=== PATIENT | female | born 1965 | race Caucasian/White ===

== ENCOUNTER 2017-02-22 07:51 | Emergency (ER) | payer BC, MEDICAID ==
--- NOTE | 2017-02-22 08:06 | EDM.PDOC ---
ED HPI GENERAL MEDICAL PROBLEM - General Chief Complaint: Lower Extremity Injury/Pain Stated Complaint: TOE INJURY AND HAND INJURY Time Seen by Provider: 02/22/17 08:04 - History of Present Illness INITIAL COMMENTS - FREE TEXT/NARRATIVE: 52-year-old female presents emergency room with left foot pain and right hand pain. Patient does not recall injuring her right hand however about a week ago she kicked a chair accidentally while walking with her left foot she has significant swelling around the distal fifth metatarsal and into the toe she had a fracture in this foot some time back and is worried that maybe she reinjured it. Patient denies any numbness or tingling in her foot just discomfort with ambulation. She has not tried any medication for this. 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 She denies any specific trauma this is been bothering her for a couple of weeks now. She has not tried any medications for reviewed these conditions.. She does not awaken with her hand being numb does not have difficulty holding on to objects or dropping objects. Right Hand Pain Score (Numeric/FACES): 7 Left Feet Pain Score (Numeric/FACES): 8 - Related Data Allergies Allergy/AdvReac Type Severity Reaction Status Date / Time codeine Allergy Rash Verified 02/22/17 07:58 Penicillins Allergy Swelling Verified 02/22/17 07:58 Home Meds: Home Meds Levothyroxine [Synthroid] 300 mcg PO DAILY 01/06/16 [History] Naproxen [Naprosyn] 500 mg PO Q12HR #20 tablet 02/22/17 [Rx] Past Medical History Respiratory History: Reports: COPD Endocrine/Metabolic History: Reports: Hypothyroidism - Past Surgical History Female Surgical History: Reports: Hysterectomy, Tubal Ligation 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 Surgical History: Reports: Other (See Below) Social & Family History - Tobacco Use Smoking Status *Q: Current Every Day Smoker Years of Tobacco use: 20 Packs/Tins Daily: 0.5 - Caffeine Use Caffeine Use: Reports: None - Recreational Drug Use Recreational Drug Use: No Review of Systems - Review of Systems Review Of Systems: See Below Constitutional: Reports: No Symptoms Respiratory: Reports: No Symptoms Cardiovascular: Reports: No Symptoms GI/Abdominal: Reports: No Symptoms ED EXAM, GENERAL - Physical Exam Exam: See Below Exam Limited By: No Limitations General Appearance: Alert, No Apparent Distress Respiratory/Chest: No Respiratory Distress, Lungs Clear, Normal Breath Sounds Cardiovascular: Regular Rate, Rhythm, No Edema, No Murmur Extremities: Other (Examination of her right hand shows no swelling or deformity she has some discomfort with flexion and extension of her thumb the pain goes into her long extensor tendon. Tinel's is negative Phalen's and reverse Phalen's negative neurovascular status normal. Examination of her left foot shows some swelling along the distal fifth metatarsal no warmth or redness associated with this she has what looks like a hammertoe with a large callus formation over the dorsal lateral interphalangeal joint. Neurovascular status of the foot is normal she has some generalized tenderness in this area aggravated by motion.) Course - Vital Signs Last Recorded V/S: Last Vital Signs Temp 36.3 C 02/22/17 07:55 Pulse 80 02/22/17 07:55 Resp 18 02/22/17 07:55 BP 114/68 02/22/17 07:55 Pulse Ox 100 02/22/17 07:55 - Orders/Labs/Meds Orders: Active Orders 24 hr Category Date Time Status Foot Comp Min 3V Lt [CR] Stat Exams 02/22/17 08:13 Taken - Re-Assessments/Exams Free Text/Narrative Re-Assessment/Exam: 02/22/17 09:06 X-ray of her left foot does not reveal any acute fracture dislocation she's got significant degenerative changes noted in her toes. I'm a little suspicious of fracture but cannot visualize it at this point. She will be placed in a postop shoe with follow-up in the clinic she'll be started on Naprosyn 500 mg twice a day with meals. She will follow-up with her regular provider early this next week. Departure - Departure Time of Disposition: 09:07 Disposition: Home, Self-Care 01 Clinical Impression: Injury of left foot, Right hand tendonitis - Discharge Information Referrals: Charlene Edmonds NP [Primary Care Provider] - Forms: ED Department Discharge Additional Instructions: Return to the emergency room with any questions problems worsening symptoms. Follow-up the clinic early this next week for recheck. He was started on Naprosyn take one of these twice daily with meals discontinue if it causes stomach upset. Tylenol can be used in addition to this. Do not take ibuprofen with the Naprosyn. This will be helpful for your foot pain as well as your hand tendinitis. You have been given a postop shoe this is to facilitate comfort and improve healing in your foot. - My Orders Last 24 Hours: My Active Orders 02/22/17 08:13 Foot Comp Min 3V Lt [CR] Stat - Assessment/Plan Last 24 Hours: My Active Orders 02/22/17 08:13 Foot Comp Min 3V Lt [CR] Stat
[2017-02-22 08:07] VITALS: BP 114/68
--- NOTE | 2017-02-23 17:11 | CR ---
Left foot: Four views of the left foot were obtained. Comparison: Previous left foot exam of 01/06/16. Joint spaces are preserved. No calcaneal spurs are seen. No fracture or other bony abnormality is identified. Impression: 1. No bony abnormality is identified on left foot study. Diagnostic code #1
== END 2017-02-22 09:22 | disposition home or self-care (01) ==
LOC: JD.ED 07:51 → SUPCPDRO 07:51 → JD.ED 09:22
DX: S99.922A Unspecified injury of left foot, initial encounter (principal); M77.9 Enthesopathy, unspecified; Z88.5 Allergy status to narcotic agent; Z88.0 Allergy status to penicillin; J44.9 Chronic obstructive pulmonary disease, unspecified; E03.9 Hypothyroidism, unspecified; Z79.899 Other long term (current) drug therapy; F17.210 Nicotine dependence, cigarettes, uncomplicated; W22.8XXA Striking against or struck by other objects, initial encounter
CPT/HCPCS: 73630-26-LT; 73630-LT; 99283

== ENCOUNTER 2017-05-16 18:26 | Emergency (ER) | payer BC ==
[2017-05-16 18:38] VITALS: BP 113/75
[2017-05-16] MEDS ORDERED: Sodium Chloride 0.9% 10 ML Syringe FLUSH PRN (19:15)
[2017-05-16] MEDS ORDERED: Aspirin 81 MG Tab.Chew PO ONE (19:15)
--- NOTE | 2017-05-16 20:30 | EDM.PDOC ---
ED HPI GENERAL MEDICAL PROBLEM - General Chief Complaint: Chest Pain Stated Complaint: CHEST PAIN,SOB Time Seen by Provider: 05/16/17 18:40 Source of Information: Reports: Patient History Limitations: Reports: No Limitations - History of Present Illness INITIAL COMMENTS - FREE TEXT/NARRATIVE: 52-year-old female presents for evaluation and treatment of chest pain and shortness of breath. Patient reports that two night ago she did not feel well. She reported nausea and diarrhea. She questioned if she had the flu. She reports discomfort last night and questioned if she slept wrong. Reports morning she woke up with severe pain to the right side of her chest. Reports that any movement, laughing, sneezing, etc. makes the pain much worse. Patient reports numbness and tingling into the arm but attributes this to her Raynods. She denies any fevers, diaphoresis, recent nausea, lightheadedness, dizziness, syncope or vomiting. She's never had anything like this before. She took some [place] last night for flu symptoms but nothing since. No aspirin prior to arrival. Patient reports that she uses tobacco products. 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 She states that she does a fair amount of lifting. 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 History: Reports: Fracture Endocrine/Metabolic History: Reports: Hypothyroidism - Infectious Disease History Infectious Disease History: Reports: Chicken Pox, Measles, Mumps - Past Surgical History HEENT Surgical History: Reports: Tonsillectomy GI Surgical History: Reports: Appendectomy Female Surgical History: Reports: Hysterectomy, Tubal Ligation Social & Family History - Tobacco Use Smoking Status *Q: Current Every Day Smoker Years of Tobacco use: 25 Packs/Tins Daily: 0.4 Second Hand Smoke Exposure: Yes - Caffeine Use Caffeine Use: Reports: Coffee - Recreational Drug Use Recreational Drug Use: No ED ROS GENERAL - Review of Systems Review Of Systems: See Below Constitutional: Reports: Malaise. Denies: Fever Respiratory: Denies: Shortness of Breath, Cough Cardiovascular: Reports: Chest Pain (right). Denies: Lightheadedness, Syncope GI/Abdominal: Denies: Nausea, Vomiting 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: Reports: Neck Pain (chronic), Back Pain (chronic) Neurological: Reports: Numbness (chronic, right arm), Tingling (chronic, right arm). Denies: Syncope ED EXAM, GENERAL - Physical Exam Exam: See Below Exam Limited By: No Limitations General Appearance: Alert, WD/WN, No Apparent Distress Eye Exam: Bilateral Eye: Normal Inspection Ears: Normal External Exam Nose: Normal Inspection Throat/Mouth: Normal Inspection, Normal Lips, Normal Voice, No Airway Compromise Respiratory/Chest: No Respiratory Distress, Lungs Clear, Normal Breath Sounds Cardiovascular: Normal Peripheral Pulses, Regular Rate, Rhythm, No Murmur, Other (tenderness to palpation to the right intercostal muscle in between ribs 2 and 3) Neurological: Alert, Oriented, Normal Cognition Psychiatric: Normal Affect, Normal Mood Skin Exam: Warm, Dry, Normal Color EKG INTERPRETATION EKG Date: 05/16/17 Time: 14:30 Rhythm: NSR Rate (Beats/Min): 80 Post: Normal P-Wave: Present QRS: Normal ST-T: Normal QT: Normal EKG Interpretation Comments: NSR at 80 bpm. No acute changes. Reviewed by myself and Dr. Mckeon. Course - Vital Signs Last Recorded V/S: Last Vital Signs Temp 36.6 C 05/16/17 18:37 Pulse 77 05/16/17 18:37 Resp 20 05/16/17 18:37 BP 113/75 05/16/17 18:37 Pulse Ox 100 05/16/17 18:37 - Orders/Labs/Meds Orders: Active Orders 24 hr Category Date Time Status Cardiac Monitoring [RC] . DIRECTED Care 05/16/17 19:15 Active EKG 12 Lead [EKG Documentation Completion] [RC] STAT Care 05/16/17 19:10 Active Peripheral IV Care [RC] . DIRECTED Care 05/16/17 19:15 Active Chest 2V [CR] Stat Exams 05/16/17 19:10 Taken Peripheral IV Insertion Adult [OM.PC] Routine Oth 05/16/17 19:14 Ordered Labs: Laboratory Tests 05/16/17 05/16/17 05/16/17 Range/Units 19:40 19:40 19:40 WBC 6.69 (3.98-10.04) K/mm3 RBC 3.97 L (3.98-5.22) M/mm3 Hgb 11.8 (11.2-15.7) gm/L Hct 36.0 (34.1-44.9) % MCV 90.7 (79.4-94.8) fl MCH 29.7 (25.6-32.2) pg MCHC 32.8 (32.2-35.5) g/dl RDW Std Deviation 52.0 H (36.4-46.3) fL Plt Count 315 (182-369) K/mm3 MPV 8.9 L (9.4-12.3) fl Neut % (Auto) 61.8 (34.0-71.1) % Lymph % (Auto) 23.9 (19.3-51.7) % [place] % (Auto) 11.2 (4.7-12.5) % Eos % (Auto) 2.4 (0.7-5.8) Baso % (Auto) 0.6 (0.1-1.2) % Neut # (Auto) 4.13 (1.56-6.13) K/mm3 Lymph # (Auto) 1.60 (1.18-3.74) K/mm3 [place] # (Auto) 0.75 H (0.24-0.36) K/mm3 Eos # (Auto) 0.16 (0.04-0.36) K/mm3 Baso # (Auto) 0.04 (0.01-0.08) K/mm3 D-Dimer, Quantitative 0.31 (0.19-0.59) mg/L Sodium 141 (136-145) mEq/L Potassium 3.6 (3.5-5.1) mEq/L Chloride 105 (98-107) mEq/L Carbon Dioxide 26 (21-32) mEq/L Anion Gap 13.6 (5-15) BUN 12 (7-18) mg/dL Creatinine 0.8 (0.55-1.02) mg/dL Est Cr Clr Drug Dosing 68.51 mL/min Estimated GFR (MDRD) > 60 (>60) mL/min BUN/Creatinine Ratio 15.0 (14-18) Glucose 119 H (74-106) mg/dL Calcium 8.7 (8.5-10.1) mg/dL Total Bilirubin 0.1 L (0.2-1.0) mg/dL AST 28 (15-37) U/L ALT 32 (14-59) U/L Alkaline Phosphatase 67 (46-116) U/L CK-MB (CK-2) 3.2 (0-3.6) ng/ml Troponin I < 0.017 (0.00-0.056) ng/mL Total Protein 7.2 (6.4-8.2) g/dl Albumin 3.6 (3.4-5.0) g/dl Globulin 3.6 gm/dL Albumin/Globulin Ratio 1.0 (1-2) Lipase 173 (73-393) U/L Meds: Medications Discontinued Medications Generic Name Dose Route Start Last Admin Trade Name Freq PRN Reason Stop Dose Admin Aspirin 324 mg 05/16/17 19:15 05/16/17 19:26 Aspirin PO 05/16/17 19:16 324 mg ONETIME ONE Administration Ibuprofen 600 mg 05/16/17 20:34 05/16/17 20:42 Motrin PO 05/16/17 20:35 600 mg ONETIME ONE Administration Sodium Chloride 10 ml 05/16/17 19:15 05/16/17 19:27 Saline Flush FLUSH 10 ml ASDIRECTED PRN Administration Keep Vein Open - Radiology Interpretation Free Text/Narrative:: chest xray shows no acute intrathoracic process. - Re-Assessments/Exams Free Text/Narrative Re-Assessment/Exam: 05/16/17 20:39 I reviewed the chest x-ray, EKG and lab results with the patient. She is anxious to go home at this time. This appears to be musculoskeletal in origin. She also has some cervical radiculopathy. Recommend follow-up with her primary care provider next week. Discharge instructions as documented. Departure - Departure Time of Disposition: 20:39 Disposition: Home, Self-Care 01 Condition: Fair Clinical Impression: Chest wall pain Prescriptions: Orphenadrine [Norflex] 100 mg PO QID PRN #14 tab.er PRN Reason: Muscle Spasm Instructions: Chest Wall Pain, [id number] Referrals: Charlene Edmonds NP [Primary Care Provider] - Forms: ED Department Discharge Additional Instructions: [id number] Tylenol or Motrin as needed for pain relief. may also use ice or heat to the sore area. May also try topical products such as icy hot or BenGay. Norflex 1 tab twice a day as needed for muscle spasms and pain relief. Follow-up with your primary care provider next week. Please return to ER if your symptoms change or worsen. - My Orders Last 24 Hours: My Active Orders 05/16/17 19:10 EKG 12 Lead [EKG Documentation Completion] [RC] STAT Chest 2V [CR] Stat 05/16/17 19:14 Peripheral IV Insertion Adult [OM.PC] Routine 05/16/17 19:15 Cardiac Monitoring [RC] . DIRECTED Peripheral IV Care [RC] . DIRECTED - Assessment/Plan Last 24 Hours: My Active Orders 05/16/17 19:10 EKG 12 Lead [EKG Documentation Completion] [RC] STAT Chest 2V [CR] Stat 05/16/17 19:14 Peripheral IV Insertion Adult [OM.PC] Routine 05/16/17 19:15 Cardiac Monitoring [RC] . DIRECTED Peripheral IV Care [RC] . DIRECTED
[2017-05-16] MEDS ORDERED: Ibuprofen 600 MG Tab PO ONE (20:34)
--- NOTE | 2017-05-17 13:41 | CR ---
Chest: Two views of the chest were obtained. Comparison: No prior chest x-ray. Heart size and mediastinum are normal. Lungs are clear. Old left-sided rib fractures are seen within the left seventh rib. Mild degenerative change is seen within the lumbar spine. Minimal degenerative change within the thoracic spine is seen. Impression: 1. Incidental findings. Nothing acute is appreciated on two-view chest x-ray. Diagnostic code #2
== END 2017-05-16 20:48 | disposition home or self-care (01) ==
LOC: JD.ED 18:26
DX: R07.89 Other chest pain (principal); E03.9 Hypothyroidism, unspecified; F17.210 Nicotine dependence, cigarettes, uncomplicated; Z88.0 Allergy status to penicillin; Z88.5 Allergy status to narcotic agent; Z79.899 Other long term (current) drug therapy
CPT/HCPCS: 36415; 71046; 80053; 82553; 83690; 84484; 85025; 85379; 93005; 99285; A9270; J7050; 93010; 99284

== ENCOUNTER 2017-08-09 07:27 | Emergency (ER) | payer BC ==
[2017-08-09 07:45] VITALS: BP 135/61
[2017-08-09] MEDS ORDERED: oxyCODONE 5 MG Tab PO PRN (08:23)
[2017-08-09] MEDS ORDERED: Ibuprofen 800 MG Tab PO ONE (08:23)
--- NOTE | 2017-08-09 08:24 | EDM.PDOC ---
ED HPI GENERAL MEDICAL PROBLEM - General Chief Complaint: Respiratory Problem Stated Complaint: CHEST INJURY Time Seen by Provider: 08/09/17 07:41 Source of Information: Reports: Patient History Limitations: Reports: No Limitations - History of Present Illness INITIAL COMMENTS - FREE TEXT/NARRATIVE: 52 y/o F with R chest wall pain after a fall. Fell 3 days ago. States she was having pain from a Crohn's flare. Was standing when she felt dizzy/lightheaded/ nauseated/had tunnel vision then fell. Thinks she passed out for less than a minute. When she awoke her was trying to wake her up. States she thinks she hit a coffee table on her way down. Has had R sided chest pain since then. pain worse with breathing. Hasn't taken anything for pain at home. Pain is moderate to severe. Worse with breathing and movement. Chronic cough due to COPD. No SOB. No fever. She states that her Crohn's flare is much improved and she no longer has abdominal pain or other bowel symptoms. Doesn't feel lightheaded, has been able to eat and drink normally the last day or 2. No lower extremity pain or swelling. Chest Pain Score (Numeric/FACES): 8 - Related Data Allergies Allergy/AdvReac Type Severity Reaction Status Date / Time codeine Allergy Rash Verified 08/09/17 07:45 Penicillins Allergy Swelling Verified 08/09/17 07:45 Home Meds: Home Meds Levothyroxine [Synthroid] 300 mcg PO DAILY 01/06/16 [History] Ibuprofen 600 mg PO QID PRN #40 tablet 08/09/17 [Rx] oxyCODONE 5 mg PO QID PRN #16 tab 08/09/17 [Rx] Past Medical History Cardiovascular History: Reports: Other (See Below) Other Cardiovascular History: reynauds Respiratory History: Reports: COPD Gastrointestinal History: Reports: Celiac Disease, Other (See Below) 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: Reports: Fracture Endocrine/Metabolic History: Reports: Hypothyroidism - Infectious Disease History Infectious Disease History: Reports: Chicken Pox, Measles, Mumps - Past Surgical History HEENT Surgical History: Reports: Tonsillectomy GI Surgical History: Reports: Appendectomy Female Surgical History: Reports: Hysterectomy, Tubal Ligation Endocrine Surgical History: Reports: Thyroidectomy Social & Family History - Tobacco Use Smoking Status *Q: Current Some Day Smoker Years of Tobacco use: 30 Packs/Tins Daily: 0.2 Second Hand Smoke Exposure: Yes - Caffeine Use Caffeine Use: Reports: Coffee - Recreational Drug Use Recreational Drug Use: No ED ROS GENERAL - Review of Systems Review Of Systems: See Below Constitutional: Denies: Fever HEENT: Reports: No Symptoms Respiratory: Reports: Cough. Denies: Shortness of Breath Cardiovascular: Reports: Chest Pain Endocrine: Reports: No Symptoms GI/Abdominal: Denies: Abdominal Pain 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: Reports: No Symptoms Skin: Reports: Bruising Neurological: Reports: No Symptoms Psychiatric: Reports: No Symptoms ED EXAM, GENERAL - Physical Exam Exam: See Below Exam Limited By: No Limitations General Appearance: Alert, WD/WN, No Apparent Distress Eye Exam: Bilateral Eye: Normal Inspection Ears: Normal External Exam Nose: Normal Inspection Throat/Mouth: Normal Inspection, Normal Oropharynx, Normal Voice, No Airway Compromise Head: Atraumatic, Normocephalic Neck: Normal Inspection, Supple, Non-Tender, Full Range of Motion Respiratory/Chest: No Respiratory Distress, Lungs Clear, Normal Breath Sounds, No Accessory Muscle Use, Other (Right chest wall contusion and tenderness from approximately T2-T4 area, no swelling, no crepitus or deformity) Cardiovascular: Normal Peripheral Pulses, Regular Rate, Rhythm, No Edema, No Murmur GI/Abdominal: Soft, Non-Tender, No Distention. No: Rebound Back Exam: Normal Inspection. No: CVA Tenderness (L), CVA Tenderness (R), Paraspinal Tenderness, Vertebral Tenderness Extremities: Normal Inspection Neurological: Alert, Oriented, Normal Cognition, No Motor/Sensory Deficits Psychiatric: Normal Affect, Normal Mood Skin Exam: Warm, Dry, Intact, Normal Color, No Rash Course - Vital Signs Last Recorded V/S: Last Vital Signs Temp 36.9 C 08/09/17 07:41 Pulse 80 08/09/17 07:41 Resp 16 08/09/17 07:41 BP 135/61 08/09/17 07:41 Pulse Ox 100 08/09/17 07:41 - Orders/Labs/Meds Orders: Active Orders 24 hr Category Date Time Status EKG 12 Lead [EKG Documentation Completion] [RC] STAT Care 08/09/17 08:23 Active Chest 2V [CR] Stat Exams 08/09/17 08:23 Taken oxyCODONE Med 04/07/18 08:23 Active 5 mg PO ONETIME PRN Medication Orders Oxycodone HCl (Oxycodone) 5 mg PO ONETIME PRN PRN Reason: Pain Last Admin: 08/09/17 08:31 Dose: 5 mg Labs: Laboratory Tests 08/09/17 08/09/17 Range/Units 08:36 08:36 WBC 7.09 (3.98-10.04) K/mm3 RBC 3.85 L (3.98-5.22) M/mm3 Hgb 11.6 (11.2-15.7) gm/L Hct 35.7 (34.1-44.9) % MCV 92.7 (79.4-94.8) fl MCH 30.1 (25.6-32.2) pg MCHC 32.5 (32.2-35.5) g/dl RDW Std Deviation 50.3 H (36.4-46.3) fL Plt Count 304 (182-369) K/mm3 MPV 8.9 L (9.4-12.3) fl Neut % (Auto) 72.3 H (34.0-71.1) % Lymph % (Auto) 14.1 L (19.3-51.7) % [place] % (Auto) 11.3 (4.7-12.5) % Eos % (Auto) 1.6 (0.7-5.8) Baso % (Auto) 0.6 (0.1-1.2) % Neut # (Auto) 5.13 (1.56-6.13) K/mm3 Lymph # (Auto) 1.00 L (1.18-3.74) K/mm3 [place] # (Auto) 0.80 H (0.24-0.36) K/mm3 Eos # (Auto) 0.11 (0.04-0.36) K/mm3 Baso # (Auto) 0.04 (0.01-0.08) K/mm3 Sodium 141 (136-145) mEq/L Potassium 3.2 L (3.5-5.1) mEq/L Chloride 104 (98-107) mEq/L Carbon Dioxide 28 (21-32) mEq/L Anion Gap 12.2 (5-15) BUN 8 (7-18) mg/dL Creatinine 0.6 (0.55-1.02) mg/dL Est Cr Clr Drug Dosing 79.68 mL/min Estimated GFR (MDRD) > 60 (>60) mL/min BUN/Creatinine Ratio 13.3 L (14-18) Glucose 92 (74-106) mg/dL Calcium 8.4 L (8.5-10.1) mg/dL Total Bilirubin 0.3 (0.2-1.0) mg/dL AST 28 (15-37) U/L ALT 24 (14-59) U/L Alkaline Phosphatase 74 (46-116) U/L Troponin I < 0.017 (0.00-0.056) ng/mL Total Protein 6.8 (6.4-8.2) g/dl Albumin 3.4 (3.4-5.0) g/dl Globulin 3.4 gm/dL Albumin/Globulin Ratio 1.0 (1-2) Meds: Medications Generic Name Dose Route Start Last Admin Trade Name Freq PRN Reason Stop Dose Admin Oxycodone HCl 5 mg 08/09/17 08:23 08/09/17 08:31 Oxycodone PO 5 mg ONETIME PRN Administration Pain Discontinued Medications Generic Name Dose Route Start Last Admin Trade Name Freq PRN Reason Stop Dose Admin Ibuprofen 800 mg 08/09/17 08:23 08/09/17 08:31 Motrin PO 08/09/17 08:24 800 mg ONETIME ONE Administration - Re-Assessments/Exams Free Text/Narrative Re-Assessment/Exam: 08/09/17 09:26 Chest x-ray shows hyperinflation, no pneumothorax. I do not appreciate any rib fractures though nondisplaced fractures could be missed. EKG shows normal sinus rhythm diffuse subtle ST depression less than 0.5mm, no ST elevation or other abnormality. Troponin is negative. Labs otherwise normal. She would like to go home. Discussed pain control, need for follow-up, and return precautions. Departure - Departure Time of Disposition: 10:00 Disposition: Home, Self-Care 01 Clinical Impression: Chest wall contusion Qualifiers: Encounter type: initial encounter Laterality: right Qualified Code(s): S20.211A - Contusion of right front wall of thorax, initial encounter - Discharge Information Prescriptions: Ibuprofen 600 mg PO QID PRN #40 tablet PRN Reason: Pain oxyCODONE 5 mg PO QID PRN #16 tab PRN Reason: Pain Instructions: Chest Wall Pain, [id number], Contusion, [id number] Referrals: Charlene Edmonds NP [Primary Care Provider] - Forms: ED Department Discharge, ED Return to Work/School Form Additional Instructions: 1. Take ibuprofen for pain. OK to take acetaminophen for pain as well. 2. Take oxycodone for severe pain. 3. Follow up with your primary doctor as needed. 4. Return to the ED if you have difficulty breathing, worsening cough/fever, or other concerning symptoms - My Orders Last 24 Hours: My Active Orders 08/09/17 08:23 EKG 12 Lead [EKG Documentation Completion] [RC] STAT Chest 2V [CR] Stat oxyCODONE 5 mg PO ONETIME PRN - Assessment/Plan Last 24 Hours: My Active Orders 08/09/17 08:23 EKG 12 Lead [EKG Documentation Completion] [RC] STAT Chest 2V [CR] Stat oxyCODONE 5 mg PO ONETIME PRN
--- NOTE | 2017-08-09 16:12 | CR ---
Chest: Two views of the chest were obtained. Comparison: Prior chest x-ray of 05/16/17. Heart size and mediastinum are normal. Lungs show no acute parenchymal densities. Bony structures are within normal limits for the patient's age. Incidental note of old healed left mid rib fracture. Impression: 1. Nothing acute is appreciated on two-view chest x-ray. Diagnostic code #2
== END 2017-08-09 09:26 | disposition home or self-care (01) ==
LOC: JD.ED 07:27
DX: S20.211A Contusion of right front wall of thorax, initial encounter (principal); J44.9 Chronic obstructive pulmonary disease, unspecified; E03.9 Hypothyroidism, unspecified; F17.210 Nicotine dependence, cigarettes, uncomplicated; Z88.5 Allergy status to narcotic agent; Z88.0 Allergy status to penicillin; Z79.899 Other long term (current) drug therapy; W19.XXXA Unspecified fall, initial encounter
CPT/HCPCS: 36415; 71046; 80053; 84484; 85025; 93005; 99285; A9270; 93010; 99283-25

== ENCOUNTER 2017-11-04 06:09 | Emergency (ER) | payer BC ==
[2017-11-04 06:16] VITALS: BP 131/70
[2017-11-04] MEDS ORDERED: Ibuprofen 600 MG Tab PO ONE (06:32)
[2017-11-04] MEDS ORDERED: Orphenadrine 100 MG Tab.ER PO STA (06:32)
--- NOTE | 2017-11-04 06:38 | EDM.PDOC ---
ED HPI GENERAL MEDICAL PROBLEM - General Chief Complaint: Back Pain or Injury Stated Complaint: SOB Time Seen by Provider: 11/04/17 06:18 Source of Information: Reports: Patient History Limitations: Reports: No Limitations - History of Present Illness INITIAL COMMENTS - FREE TEXT/NARRATIVE: The patient states that she has had lower left back pain for nearly 30 years, a sensibly due to scoliosis, although she states that she has never had a medical evaluation for it, only chiropractic. She states that she saw her chiropractor yesterday, but that the adjustment only made her symptoms worse. The pain does not radiate down either lower extremity, and she denies tingling or numbness. She states that no position is better than another. No urinary symptoms. She states that she took 2 Percocet this morning, left over from a prior hand injury. The patient's PCP is Charlene Edmonds. 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: 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 History: Reports: Fracture, Other (See Below) (Raynaud phenomenon) Endocrine/Metabolic History: Reports: Hypothyroidism - Infectious Disease History Infectious Disease History: Reports: Chicken Pox, Measles, Mumps - Past Surgical History HEENT Surgical History: Reports: Tonsillectomy GI Surgical History: Reports: Appendectomy Female Surgical History: Reports: Hysterectomy, Tubal Ligation Endocrine Surgical History: Reports: Thyroidectomy Social & Family History - Family History Family Medical History: Noncontributory - Tobacco Use Smoking Status *Q: Current Every Day Smoker Years of Tobacco use: 10 Packs/Tins Daily: 0.1 - Caffeine Use Caffeine Use: Reports: None - Recreational Drug Use Recreational Drug Use: Yes ED ROS GENERAL - Review of Systems Review Of Systems: ROS reveals no pertinent complaints other than HPI. ED EXAM,LOWER BACK PAIN/INJURY - Physical Exam Exam: See Below Exam Limited By: No Limitations General Appearance: Alert, WD/WN, Mild Distress (tearful), Thin Back Exam: Other (No visible abnormality to the patient's lower back, such as swelling, erythema, ecchymosis, or abrasion. There is reproducible tenderness to palpation over the left SI joint. No tenderness to palpation of the vertebral spine or right SI joint.) Course - Vital Signs Last Recorded V/S: Last Vital Signs Temp 37.1 C 11/04/17 06:12 Pulse 97 11/04/17 06:12 Resp 24 H 11/04/17 06:12 BP 131/70 11/04/17 06:12 Pulse Ox 100 11/04/17 06:12 - Orders/Labs/Meds Orders: Active Orders 24 hr Category Date Time Status Ibuprofen [Motrin] Med 11/04/17 06:32 Once 600 mg PO ONETIME ONE Orphenadrine [Norflex] Med 11/04/17 06:32 Stat 100 mg PO ONETIME STA - Re-Assessments/Exams Free Text/Narrative Re-Assessment/Exam: 11/04/17 06:32 The patient is complaining of [id number] lower back pain, made worse after she saw her chiropractor yesterday. Her pain is over her left SI joint, and appears to be musculoskeletal in etiology. I will start her on Norflex and ibuprofen here in the ED, then prescribe another 7 days of Norflex. If the Norflex works for her, she can get refills from her PCP, Charlene Edmonds. If it does not work, I would like her to follow-up with Dr. Bush. Departure - Departure Time of Disposition: 06:33 Disposition: Home, Self-Care 01 Condition: Good Clinical Impression: Acute exacerbation of chronic low back pain - Discharge Information Referrals: Charlene Edmonds NP [Ordering Only Provider] - Maxime Bush MD [Physician] - Additional Instructions: You were seen in the emergency room for exacerbation of your chronic lower left back pain. Your history and physical examination indicate that the pain is due to a muscle strain or spasm. You have been started on the muscle relaxant Norflex. A prescription for Norflex has been sent to the [facility], located in the [place] store. Take one tablet every 12 hours, as prescribed. Take [id number] ibuprofen, 2-3 tablets (400-600 mg) every 8 hours, with food, as needed for pain. If the Norflex works for you, you can get a refill from your PCP, Charlene Edmonds. If the Norflex does not work for you, please follow-up with the orthopedic surgeon Dr. Bush. He will be in his office this coming 11/07/2017, however , you need to call before then to make an appointment. Be aware that his office will be closed tomorrow, Friday, November 05. If any other problems, please do not hesitate to return to the ER. - My Orders Last 24 Hours: My Active Orders 11/04/17 06:32 Ibuprofen [Motrin] 600 mg PO ONETIME ONE Orphenadrine [Norflex] 100 mg PO ONETIME STA - Assessment/Plan Last 24 Hours: My Active Orders 11/04/17 06:32 Ibuprofen [Motrin] 600 mg PO ONETIME ONE Orphenadrine [Norflex] 100 mg PO ONETIME STA
== END 2017-11-04 06:42 | disposition home or self-care (01) ==
LOC: JD.ED 06:09
DX: M54.5 Low back pain (principal); G89.29 Other chronic pain; J44.9 Chronic obstructive pulmonary disease, unspecified; F17.210 Nicotine dependence, cigarettes, uncomplicated; E03.9 Hypothyroidism, unspecified; Z88.5 Allergy status to narcotic agent; Z88.0 Allergy status to penicillin; Z79.899 Other long term (current) drug therapy
CPT/HCPCS: 99283; A9270

== ENCOUNTER 2018-10-26 09:12 | Emergency (ER) | payer BC ==
[2018-10-26 09:23] VITALS: BP 137/75
[2018-10-26] MEDS ORDERED: Acetaminophen/HYDROcodone 325-5 MG Tab PO ONE (09:36)
--- NOTE | 2018-10-26 11:58 | EDM.PDOC ---
ED HPI GENERAL MEDICAL PROBLEM - General Chief Complaint: Chest Pain Stated Complaint: RIB PAIN/INJURY Time Seen by Provider: 10/26/18 09:26 Source of Information: Reports: Patient, RN Notes Reviewed - History of Present Illness INITIAL COMMENTS - FREE TEXT/NARRATIVE: 53-year-old female was riding a mechanical bull about 4 days ago, as she was getting bucked off she states her left chest he had a horn of the bull. She did not get hurt in any other way but has had continued pain left chest. Then today at work doing some fairly heavy lifting she had onset of right-sided chest pain and difficulty breathing. That is what brings her here at this time. The pain does not radiate to her back or either shoulder or arm. She's not been coughing any more than usual. She does smoke. Bilateral Lower Chest Pain Score (Numeric/FACES): 8 - Related Data Allergies Allergy/AdvReac Type Severity Reaction Status Date / Time codeine Allergy Rash Verified 10/26/18 09:23 Penicillins Allergy Swelling Verified 10/26/18 09:23 Home Meds: Home Meds Levothyroxine [Synthroid] 300 mcg PO DAILY 01/06/16 [History] Estradiol 0.5 mg PO DAILY 10/26/18 [History] Past Medical History Cardiovascular History: Reports: Other (See Below) Other Cardiovascular History: reynauds Respiratory History: Reports: COPD Other Respiratory History: emphasema Gastrointestinal History: Reports: Celiac Disease, Inflammatory Bowel Disease 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: 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 History: Reports: Fracture, Other (See Below) Endocrine/Metabolic History: Reports: Hypothyroidism - Infectious Disease History Infectious Disease History: Reports: Chicken Pox, Measles, Mumps - Past Surgical History HEENT Surgical History: Reports: Tonsillectomy GI Surgical History: Reports: Appendectomy Female Surgical History: Reports: Hysterectomy, Tubal Ligation Endocrine Surgical History: Reports: Thyroidectomy Social & Family History - Family History Family Medical History: Noncontributory - Tobacco Use Smoking Status *Q: Current Every Day Smoker Years of Tobacco use: 20 Packs/Tins Daily: 0.5 - Caffeine Use Caffeine Use: Reports: None - Recreational Drug Use Recreational Drug Use: No ED ROS GENERAL - Review of Systems Review Of Systems: See Below Constitutional: Denies: Fever, Chills, Diaphoresis HEENT: Reports: No Symptoms Respiratory: Reports: Shortness of Breath, Pleuritic Chest Pain (Pain both left and right chest is worse with deep breathing), Cough (Occasional chronic) Cardiovascular: Reports: Chest Pain GI/Abdominal: Denies: Abdominal Pain, Nausea, Vomiting 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: Denies: Neck Pain, Shoulder Pain, Arm Pain, Back Pain Skin: Denies: Rash Neurological: Reports: No Symptoms ED EXAM, GENERAL - Physical Exam Exam: See Below General Appearance: Alert, Moderate Distress Eye Exam: Bilateral Eye: PERRL Head: Atraumatic Neck: Supple, Non-Tender Respiratory/Chest: Lungs Clear, Normal Breath Sounds, Other (She does have tenderness of the left lateral chest wall area, no bruising or swelling visible , no palpable crepitus. Tenderness of the right lateral chest as well with no bruising or swelling visible.). No: Rhonchi, Wheezing Cardiovascular: Regular Rate, Rhythm GI/Abdominal: Soft, Non-Tender Back Exam: Normal Inspection. No: Vertebral Tenderness Extremities: Normal Inspection, Normal Range of Motion Neurological: Alert, Oriented, No Motor/Sensory Deficits Course - Vital Signs Last Recorded V/S: Last Vital Signs Temp 97.8 F 10/26/18 09:21 Pulse 76 10/26/18 09:21 Resp 18 10/26/18 09:21 BP 137/75 10/26/18 09:21 Pulse Ox 97 10/26/18 09:21 - Orders/Labs/Meds Meds: Medications Discontinued Medications Generic Name Dose Route Start Last Admin Trade Name Freq PRN Reason Stop Dose Admin Hydrocodone Bitart/Acetaminophen 1 tab 10/26/18 09:36 10/26/18 09:44 [place] 325-5 Mg PO 10/26/18 09:37 1 tab ONETIME ONE Administration - Re-Assessments/Exams Free Text/Narrative Re-Assessment/Exam: 10/26/18 16:08 X-rays of the ribs are negative for fracture, chest x-ray, no acute infiltrate or other apparent abnormality. Evidence of old healed fracture on the left. Departure - Departure Time of Disposition: 11:56 Disposition: Home, Self-Care 01 Condition: Fair Clinical Impression: Chest wall contusion Qualifiers: Encounter type: initial encounter Laterality: left Qualified Code(s): S20.212A - Contusion of left front wall of thorax, initial encounter - Discharge Information Instructions: Contusion, [id number] Referrals: Charlene Edmonds NP [Primary Care Provider] - Forms: ED Department Discharge, ED Return to Work/School Form Additional Instructions: Alternate ice and heat areas of pain as needed, alternate Tylenol and ibuprofen for discomfort as discussed. You may take one half tablet Vicodin every 6-8 hours along with a 500 mg Tylenol when not working. Do not drive or work when taking the Vicodin. Follow-up clinic if not much better within 7-10 days as expected.
--- NOTE | 2018-10-26 12:15 | CR ---
Chest and left ribs: Frontal view of the chest was obtained as well as two views of the left ribs. Comparison: Previous chest x-ray of 02/17/18. Heart size and mediastinum are normal. Lungs are clear. Old healed rib fracture is seen within the left seventh rib. No acute fracture or other left-sided rib abnormality is appreciated. Impression: 1. Old healed left-sided rib fracture. 2. No acute rib abnormality definitely appreciated. 3. Nothing acute is seen on accompanying chest x-ray. Diagnostic code #2
== END 2018-10-26 12:07 | disposition home or self-care (01) ==
LOC: JD.ED 09:12
DX: S20.212A Contusion of left front wall of thorax, initial encounter (principal); F17.210 Nicotine dependence, cigarettes, uncomplicated; J44.9 Chronic obstructive pulmonary disease, unspecified; E03.9 Hypothyroidism, unspecified; Z79.899 Other long term (current) drug therapy; Z88.0 Allergy status to penicillin; Z88.5 Allergy status to narcotic agent; W09.8XXA Fall on or from other playground equipment, initial encounter
CPT/HCPCS: 71101; 99283; A9270

== ENCOUNTER 2019-02-04 03:06 | Emergency (ER) | payer BC ==
[2019-02-04 03:16] VITALS: BP 150/98; PULSE 100
[2019-02-04] MEDS ORDERED: Ketorolac 30 MG/ML SDV IM ONE (03:26)
--- NOTE | 2019-02-04 03:36 | EDM.PDOC ---
ED HPI GENERAL MEDICAL PROBLEM - General Chief Complaint: General Stated Complaint: SWOLLEN JAW Time Seen by Provider: 02/04/19 03:21 Source of Information: Reports: Patient History Limitations: Reports: No Limitations - History of Present Illness INITIAL COMMENTS - FREE TEXT/NARRATIVE: 54 y/o F with R jaw pain. States it started this evening. Woke her from sleep. Denies injury. Pain is sharp, located underneath R angle of the jaw and is sharp , nonradiating. Worse with mouth opening and talking. Also has pain in front of her ear. Denies similar symptoms previously. No facial swelling. No recent fevers. [place] 5 [place]. Did not take any meds prior to coming to ED. Right Jaw Pain Score (Numeric/FACES): 10 - Related Data Allergies Allergy/AdvReac Type Severity Reaction Status Date / Time codeine Allergy Rash Verified 02/04/19 05:24 Penicillins Allergy Swelling Verified 02/04/19 05:24 Home Meds: Home Meds Levothyroxine [Synthroid] 300 mcg PO DAILY 01/06/16 [History] Estradiol 0.5 mg PO DAILY 10/26/18 [History] Past Medical History Cardiovascular History: Reports: Other (See Below) Other Cardiovascular History: reynauds Respiratory History: Reports: COPD Other Respiratory History: emphasema Gastrointestinal History: Reports: Celiac Disease, Inflammatory Bowel Disease 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 History: 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: Reports: Fracture, Other (See Below) Endocrine/Metabolic History: Reports: Hypothyroidism - Infectious Disease History Infectious Disease History: Reports: Chicken Pox, Measles, Mumps - Past Surgical History HEENT Surgical History: Reports: Tonsillectomy GI Surgical History: Reports: Appendectomy Female Surgical History: Reports: Hysterectomy, Tubal Ligation Endocrine Surgical History: Reports: Thyroidectomy Social & Family History - Family History Family Medical History: Noncontributory - Caffeine Use Caffeine Use: Reports: None ED ROS GENERAL - Review of Systems Review Of Systems: See Below Constitutional: Denies: Fever HEENT: Reports: Other (R jaw pain) Respiratory: Denies: Shortness of Breath Cardiovascular: Reports: No Symptoms Endocrine: Reports: No Symptoms GI/Abdominal: Reports: No Symptoms : Reports: No Symptoms 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: Reports: No Symptoms Skin: Reports: No Symptoms Neurological: Reports: No Symptoms Psychiatric: Reports: No Symptoms Hematologic/Lymphatic: Reports: No Symptoms ED EXAM, GENERAL - Physical Exam Exam: See Below Exam Limited By: No Limitations General Appearance: Alert, Other (crying, anxious) Eye Exam: Bilateral Eye: Normal Inspection Ears: Normal External Exam, Hearing Grossly Normal, Other (R TM normal ) Ear Exam: Right Ear: Canal Normal, TM normal Nose: Normal Inspection Throat/Mouth: Normal Inspection, Other (limited mouth opening due to pain, wearing dentures which she removed for exam, no +mild TTP along R lower buccal area, no focal swelling or fluctuance. ) Head: Atraumatic, Normocephalic, Facial Tenderness, Other (+TTP in area of angle of the mandible, no palpable LAD or other mass, no appreciable mass or fluctuance, +TTP of preauricular area, no LAD/mass/fluctuance, +TMJ TTP ). No: Facial Swelling Neck: Normal Inspection, Supple, Non-Tender Respiratory/Chest: No Respiratory Distress, Lungs Clear Cardiovascular: Normal Peripheral Pulses, Regular Rate, Rhythm GI/Abdominal: Soft, Non-Tender Extremities: Normal Inspection Neurological: Alert, Oriented Psychiatric: Anxious Skin Exam: Warm, Dry Course - Vital Signs Last Recorded V/S: Last Vital Signs Temp 36.7 C 02/04/19 03:14 Pulse 100 02/04/19 03:14 Resp 18 02/04/19 03:14 BP 150/98 H 02/04/19 03:14 Pulse Ox 100 02/04/19 03:14 - Orders/Labs/Meds Orders: Active Orders 24 hr Category Date Time Status EKG 12 Lead [EKG Documentation Completion] [RC] STAT Care 02/04/19 03:26 Active Meds: Medications Discontinued Medications Generic Name Dose Route Start Last Admin Trade Name Freq PRN Reason Stop Dose Admin Ketorolac Tromethamine 30 mg 02/04/19 03:26 02/04/19 03:30 Toradol IM 02/04/19 03:27 30 mg ONETIME ONE Administration - Re-Assessments/Exams Free Text/Narrative Re-Assessment/Exam: 02/04/19 03:36 EKG shows NSR, no ST/T abnormality. Pain seems to be localized to TMJ area though she also has some bony and soft tissue tenderness at the R angle of the mandible and tenderness of masseter muscular tissues. There is no external or oral area that looks infected. She does have dentures. No clear explanation for pain but no apparent emergent source. Encouraged her to try ibuprofen/APAP, warm compresses, f/u with dental [facility], also f/u with PCP as symptoms resolve, and discussed ED return precautions. 02/04/19 19:24 Departure - Departure Time of Disposition: 03:43 Disposition: Home, Self-Care 01 Clinical Impression: Pain in lower jaw - Discharge Information Referrals: Bhaskar Mims MD [Primary Care Provider] - Forms: ED Department Discharge Additional Instructions: 1. Continue to use warm compresses on area of pain. 2. Take ibuprofen and acetaminophen according to bottle directions for pain. OK to take both medications together - they work and act in different ways. 3. Follow up with your dentist as soon as possible - they can be very helpful in evaluating this type of pain, including assessing your bite and temporal mandibular joint (TMJ) as this may be your source of pain. 4. You may also follow up with your regular healthcare provider. 5. Return to the ED if you develop an area of swelling, worsening pain, fever, or other concerning symptoms. - My Orders Last 24 Hours: My Active Orders 02/04/19 03:26 EKG 12 Lead [EKG Documentation Completion] [RC] STAT - Assessment/Plan Last 24 Hours: My Active Orders 02/04/19 03:26 EKG 12 Lead [EKG Documentation Completion] [RC] STAT
== END 2019-02-04 04:01 | disposition home or self-care (01) ==
LOC: JD.ED 03:06
DX: R68.84 Jaw pain (principal); J43.9 Emphysema, unspecified; E03.9 Hypothyroidism, unspecified; Z88.0 Allergy status to penicillin; Z88.5 Allergy status to narcotic agent; Z79.890 Hormone replacement therapy
CPT/HCPCS: 93005; 96372; 99283; J1885

== ENCOUNTER 2020-12-31 15:23 | Emergency (ER) | payer BC, OTHER ==
[2020-12-31 15:34] VITALS: BP 138/80; PULSE 80
[2020-12-31] MEDS ORDERED: Sodium Chloride 0.9% 1,000 ML IV STA (15:49)
[2020-12-31] MEDS ORDERED: Metoclopramide 10 MG/2 ML SDV IVPUSH ONE (15:49)
[2020-12-31] MEDS ORDERED: Sodium Chloride 0.9% 10 ML Syringe FLUSH PRN (15:49)
[2020-12-31] MEDS ORDERED: Ketorolac 30 MG/ML SDV IVPUSH ONE (15:50)
[2020-12-31] MEDS ORDERED: diphenhydrAMINE 50 MG/ML SDV IVPUSH ONE (15:51)
--- NOTE | 2020-12-31 15:55 | EDM.PDOC ---
ED HPI GENERAL MEDICAL PROBLEM - General Chief Complaint: Abdominal Pain Stated Complaint: VOMITING DIARRHEA POSS FOOD POISONING Time Seen by Provider: 12/31/20 15:41 Source of Information: Reports: Patient History Limitations: Reports: No Limitations - History of Present Illness INITIAL COMMENTS - FREE TEXT/NARRATIVE: The patient presents with nausea, vomiting, diarrhea and a headache. She at a chicken burrito at 11am that was sitting out all night. She then started having nausea, vomiting and diarrhea. That then triggered a migraine. She has no fever but she does have chills. She has no cough, chest pain, or shortness of breath. She does have some mild stomach cramps at times. Onset: Sudden Duration: Hour(s): Location: Reports: Abdomen Quality: Reports: Ache Severity: Mild Improves with: Reports: None Worsens with: Reports: None Associated Symptoms: Reports: Fever/Chills, Nausea/Vomiting. Denies: Chest Pain, Cough, Headaches, Shortness of Breath Abdominal Pain Score (Numeric/FACES): 6 - Related Data Allergies Allergy/AdvReac Type Severity Reaction Status Date / Time codeine Allergy Rash Verified 12/31/20 15:35 Penicillins Allergy Swelling Verified 12/31/20 15:35 Home Meds: Home Meds Levothyroxine [Synthroid] 300 mcg PO DAILY 01/06/16 [History] Past Medical History Cardiovascular History: Reports: Other (See Below) Other Cardiovascular History: reynauds Respiratory History: Reports: COPD Other Respiratory History: emphasema Gastrointestinal History: Reports: Celiac Disease, Inflammatory Bowel Disease 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 History: crohns 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: 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 History: Reports: Fracture, Other (See Below) Endocrine/Metabolic History: Reports: Hypothyroidism - Infectious Disease History Infectious Disease History: Reports: Chicken Pox, Measles, Mumps - Past Surgical History HEENT Surgical History: Reports: Tonsillectomy GI Surgical History: Reports: Appendectomy Female Surgical History: Reports: Hysterectomy, Tubal Ligation Endocrine Surgical History: Reports: Thyroidectomy 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 Surgical History: Reports: Other (See Below) Other 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 Surgeries/Procedures:: bilateral knee surgery Social & Family History - Family History Family Medical History: No Pertinent Family History - Tobacco Use Tobacco Use Status *Q: Current Every Day Tobacco User Years of Tobacco use: 1 Packs/Tins Daily: 0.5 - Caffeine Use Caffeine Use: Reports: Energy Drinks - Recreational Drug Use Recreational Drug Use: No ED ROS GENERAL - Review of Systems Review Of Systems: See Below Constitutional: Reports: Chills. Denies: Fever HEENT: Reports: No Symptoms Respiratory: Reports: No Symptoms Cardiovascular: Reports: No Symptoms Endocrine: Reports: No Symptoms GI/Abdominal: Reports: Abdominal Pain, Diarrhea, Nausea, Vomiting : Reports: No Symptoms 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: Reports: No Symptoms ED EXAM, GI/ABD - Physical Exam Exam: See Below Exam Limited By: No Limitations General Appearance: Alert, No Apparent Distress Ears: Normal External Exam Nose: Normal Inspection Head: Atraumatic, Normocephalic Neck: Normal Inspection Respiratory/Chest: No Respiratory Distress, Lungs Clear, Normal Breath Sounds Cardiovascular: Regular Rate, Rhythm, No Edema, No Murmur GI/Abdominal Exam: Soft, Non-Tender, No Organomegaly, No Mass Back Exam: Normal Inspection Extremities: Normal Inspection Neurological: Alert, Oriented, No Motor/Sensory Deficits Course - Vital Signs Last Recorded V/S: Last Vital Signs Temp 97.0 F 12/31/20 15:33 Pulse 80 12/31/20 15:33 Resp 20 12/31/20 15:33 BP 138/80 12/31/20 15:33 Pulse Ox 100 12/31/20 15:33 - Orders/Labs/Meds Orders: Active Orders 24 hr Category Date Time Status Peripheral IV Care [RC] . DIRECTED Care 12/31/20 15:50 Active CORONAVIRUS COVID-19 HETAL [MOLEC] Stat Lab 12/31/20 15:40 Received Sodium Chloride 0.9% [Saline Flush] Med 12/31/20 15:49 Active 10 ml FLUSH ASDIRECTED PRN ED Antiemetic Medication Reflex [OM.PC] Stat Oth 12/31/20 15:50 Ordered Peripheral IV Insertion Adult [OM.PC] Stat Oth 12/31/20 15:49 Ordered Medication Orders Sodium Chloride (Sodium Chloride 0.9% 10 Ml Syringe) 10 ml FLUSH ASDIRECTED PRN PRN Reason: Keep Vein Open Last Admin: 12/31/20 16:17 Dose: 10 ml Documented by: ADRIAN Labs: Laboratory Tests 12/31/20 12/31/20 Range/Units 15:40 15:40 WBC 6.20 (3.98-10.04) K/mm3 RBC 5.01 (3.98-5.22) M/mm3 Hgb 14.5 D (11.2-15.7) gm/dl Hct 44.3 (34.1-44.9) % MCV 88.4 (79.4-94.8) fl MCH 28.9 (25.6-32.2) pg MCHC 32.7 (32.2-35.5) g/dl RDW Std Deviation 48.2 H (36.4-46.3) fL Plt Count 360 (182-369) K/mm3 MPV 9.7 (9.4-12.3) fl Neut % (Auto) 68.8 (34.0-71.1) % Lymph % (Auto) 21.0 (19.3-51.7) % [place] % (Auto) 6.8 (4.7-12.5) % Eos % (Auto) 2.7 (0.7-5.8) Baso % (Auto) 0.5 (0.1-1.2) % Neut # (Auto) 4.27 (1.56-6.13) K/mm3 Lymph # (Auto) 1.30 (1.18-3.74) K/mm3 [place] # (Auto) 0.42 H (0.24-0.36) K/mm3 Eos # (Auto) 0.17 (0.04-0.36) K/mm3 Baso # (Auto) 0.03 (0.01-0.08) K/mm3 Sodium 147 H (136-145) mEq/L Potassium 3.0 L (3.5-5.1) mEq/L Chloride 105 (98-107) mEq/L Carbon Dioxide 36 H D (21-32) mEq/L Anion Gap 9.0 (5-15) BUN 8 (7-18) mg/dL Creatinine 0.7 (0.55-1.02) mg/dL Est Cr Clr Drug Dosing 82.67 mL/min Estimated GFR (MDRD) > 60 (>60) mL/min BUN/Creatinine Ratio 11.4 L (14-18) Glucose 99 (70-99) mg/dL Calcium 8.7 (8.5-10.1) mg/dL Total Bilirubin 0.2 (0.2-1.0) mg/dL AST 30 (15-37) U/L ALT 37 (14-59) U/L Alkaline Phosphatase 96 (46-116) U/L Total Protein 7.8 (6.4-8.2) g/dl Albumin 4.0 (3.4-5.0) g/dl Globulin 3.8 gm/dL Albumin/Globulin Ratio 1.1 (1-2) Lipase 167 (73-393) U/L Meds: Medications Generic Name Dose Route Start Last Admin Trade Name Freq PRN Reason Stop Dose Admin Sodium Chloride 10 ml 12/31/20 15:49 12/31/20 16:17 Sodium Chloride 0.9% 10 Ml Syringe FLUSH 10 ml ASDIRECTED PRN Administration Keep Vein Open Discontinued Medications Generic Name Dose Route Start Last Admin Trade Name Freq PRN Reason Stop Dose Admin Diphenhydramine HCl 50 mg 12/31/20 15:51 12/31/20 16:22 Diphenhydramine 50 Mg/Ml Sdv IVPUSH 12/31/20 15:52 50 mg ONETIME ONE Administration Sodium Chloride 1,000 mls @ 1,000 mls/hr 12/31/20 15:49 12/31/20 16:15 Normal Saline IV 12/31/20 16:48 1,000 mls/hr .BOLUS STA Administration Ketorolac Tromethamine 30 mg 12/31/20 15:50 12/31/20 16:18 Ketorolac 30 Mg/Ml Sdv IVPUSH 12/31/20 15:51 30 mg ONETIME ONE Administration Metoclopramide HCl 10 mg 12/31/20 15:49 12/31/20 16:16 Metoclopramide 10 Mg/2 Ml Sdv IVPUSH 12/31/20 15:50 10 mg ONETIME ONE Administration - Re-Assessments/Exams Free Text/Narrative Re-Assessment/Exam: 12/31/20 15:54 I ordered an IV NS bolus, reglan 10mg IV, toradol 30mg IV, benadryl 50mg IV, and labs. 12/31/20 17:10 Her CBC looks good. Her Na was a little elevated at 147. Her K is low at 3. Her lipase is negative. She feels much better. Departure - Departure Time of Disposition: 17:10 Disposition: Home, Self-Care 01 Condition: Good Clinical Impression: Food poisoning Nausea & vomiting Qualifiers: Vomiting type: unspecified Vomiting Intractability: non-intractable Qualified Code(s): R11.2 - Nausea with vomiting, unspecified Diarrhea Qualifiers: Diarrhea type: unspecified type Qualified Code(s): R19.7 - Diarrhea, unspecified - Discharge Information *PRESCRIPTION DRUG MONITORING PROGRAM REVIEWED*: Not Applicable *COPY OF PRESCRIPTION DRUG MONITORING REPORT IN PATIENT CATHLEEN: Not Applicable Referrals: Charlene Edmonds CUSTOMER SERVICE TELLER [Primary Care Provider] - 1 Week Forms: ED Department Discharge Additional Instructions: Drink plenty of fluids. Take the zofran every 6 hours as needed for nausea and vomiting. Advance your diet as tolerated. Follow up with your doctor within a week. Please return if you are worse. Sepsis Event Note (ED) - Focused Exam Vital Signs: Vital Signs Temp Pulse Resp BP Pulse Ox 12/31/20 15:33 97.0 F 80 20 138/80 100 - My Orders Last 24 Hours: My Active Orders 12/31/20 15:40 CORONAVIRUS COVID-19 HETAL [MOLEC] Stat 12/31/20 15:49 Sodium Chloride 0.9% [Saline Flush] 10 ml FLUSH ASDIRECTED PRN Peripheral IV Insertion Adult [OM.PC] Stat 12/31/20 15:50 Peripheral IV Care [RC] . DIRECTED ED Antiemetic Medication Reflex [OM.PC] Stat - Assessment/Plan Last 24 Hours: My Active Orders 12/31/20 15:40 CORONAVIRUS COVID-19 HETAL [MOLEC] Stat 12/31/20 15:49 Sodium Chloride 0.9% [Saline Flush] 10 ml FLUSH ASDIRECTED PRN Peripheral IV Insertion Adult [OM.PC] Stat 12/31/20 15:50 Peripheral IV Care [RC] . DIRECTED ED Antiemetic Medication Reflex [OM.PC] Stat
== END 2020-12-31 17:29 | disposition home or self-care (01) ==
LOC: JD.ED 15:23
DX: T78.1XXA Other adverse food reactions, not elsewhere classified, initial encounter (principal); R11.2 Nausea with vomiting, unspecified; R19.7 Diarrhea, unspecified; E03.9 Hypothyroidism, unspecified; J44.9 Chronic obstructive pulmonary disease, unspecified; Z88.5 Allergy status to narcotic agent; Z88.0 Allergy status to penicillin; Z79.899 Other long term (current) drug therapy; Z72.0 Tobacco use; Z20.822 Contact with and (suspected) exposure to COVID-19
CPT/HCPCS: 36415; 80053; 83690; 85025; 87635; 96374; 96375; 99284; J1200; J1885; J2765; J7030; U0002

== ENCOUNTER 2022-07-05 21:27 | Emergency (ER) | payer MEDICAID, OTHER ==
[2022-07-05 21:51] VITALS: BP 114/58; PULSE 72
== END 2022-07-05 23:46 | disposition home or self-care (01) ==
LOC: JD.ED 21:27
DX: R82.5 Elevated urine levels of drugs, medicaments and biological substances (principal); J43.9 Emphysema, unspecified; E03.9 Hypothyroidism, unspecified; Z88.5 Allergy status to narcotic agent; Z88.0 Allergy status to penicillin; Z79.899 Other long term (current) drug therapy
CPT/HCPCS: 80306; 99283; 99284

== ENCOUNTER 2022-09-29 04:25 | Emergency (ER) | payer MEDICAID ==
[2022-09-29] MEDS ORDERED: Acetaminophen 325 MG Tab PO ONE (07:08)
[2022-09-29 10:18] VITALS: BP 117/50; PULSE 65
== END 2022-09-29 07:45 | disposition home or self-care (01) ==
LOC: JD.ED 04:25
DX: S00.03XA Contusion of scalp, initial encounter (principal); J43.9 Emphysema, unspecified; E03.9 Hypothyroidism, unspecified; Z88.5 Allergy status to narcotic agent; Z88.0 Allergy status to penicillin; Z79.899 Other long term (current) drug therapy; W10.9XXA Fall (on) (from) unspecified stairs and steps, initial encounter
CPT/HCPCS: 70450; 71046; 72125; 73562; 99284; A9270

== ENCOUNTER 2022-10-07 08:20 | Emergency (ER) | payer MEDICAID ==
[2022-10-07] MEDS ORDERED: Sodium Chloride 0.9% 10 ML Syringe FLUSH PRN (08:44)
[2022-10-07] MEDS ORDERED: Aspirin 81 MG Tab.Chew PO ONE (08:44)
[2022-10-07 08:56] LABS: BASOPHILS ABSOLUTE AUTO 0.03 K/mm3 (0.01-0.08); BASOPHILS PERCENT AUTO 0.5 % (0.1-1.2); EOSINOPHILS ABSOLUTE AUTO 0.11 K/mm3 (0.04-0.36); IMMATURE GRAN ABSOLUTE AUTO 0.01 K/mm3 (0.00-0.10); IMMATURE GRAN PERCENT AUTO 0.2 % (<=1.0); LYMPHOCYTES ABSOLUTE AUTO 1.23 K/mm3 (1.18-3.74); LYMPHOCYTES PERCENT AUTO 21.9 % (19.3-51.7); MEAN CORPUSCULAR HEMOGLOBIN 29.1 pg (25.6-32.2); MEAN CORPUSCULAR HGB CONC 32.9 g/dl (32.2-35.5); MEAN CORPUSCULAR VOLUME 88.6 fl (79.4-94.8); MEAN PLATELET VOLUME 9.4 fl (9.4-12.3); MONOCYTES ABSOLUTE AUTO 0.48 K/mm3 (0.24-0.36); MONOCYTES PERCENT AUTO 8.6 % (4.7-12.5); NEUTROPHILS ABSOLUTE AUTO 3.75 K/mm3 (1.56-6.13); NEUTROPHILS PERCENT AUTO 66.8 % (34.0-71.1); PLATELET COUNT,PLT 415 K/mm3 (182-369); RED BLOOD CELL COUNT 4.29 M/mm3 (3.98-5.22); WHITE BLOOD CELL COUNT,WBC 5.61 K/mm3 (3.98-10.04)
[2022-10-07 09:04] LABS: HEMOGLOBIN 12.5 gm/dl (11.2-15.7)
[2022-10-07 09:27] LABS: A/G RATIO 0.8 (1-2); ALBUMIN 3.3 g/dl (3.4-5.0); ANION GAP 12.9 (5-15); BILIRUBIN TOTAL 0.3 mg/dL (0.2-1.0); BUN/CREATININE RATIO 12.5 (14-18); CALCIUM 9.1 mg/dL (8.5-10.1); CREATININE 0.8 mg/dL (0.55-1.02); EST CRCL DRUG DOSING (CG) 66.97 mL/min; POTASSIUM,K 3.9 mEq/L (3.5-5.1); PROTEIN TOTAL,TP 7.5 g/dl (6.4-8.2)
[2022-10-07 12:08] VITALS: BP 108/45; PULSE 61
== END 2022-10-07 11:46 | disposition home or self-care (01) ==
LOC: JD.ED 08:20
DX: R07.89 Other chest pain (principal); E03.9 Hypothyroidism, unspecified; J44.9 Chronic obstructive pulmonary disease, unspecified; Z88.5 Allergy status to narcotic agent; Z79.899 Other long term (current) drug therapy; Z87.891 Personal history of nicotine dependence
CPT/HCPCS: 36415; 71045; 71275; 80053; 84484; 85025; 85379; 93005; 99285; A9270; J3490; 93010; 99284

== ENCOUNTER 2023-03-18 13:46 | Emergency (ER) | payer MEDICAID ==
[2023-03-18] MEDS ORDERED: Ketorolac 30 MG/ML SDV IVPUSH ONE (14:25)
[2023-03-18] MEDS ORDERED: Cyclobenzaprine 10 MG Tab PO ONE (14:25)
[2023-03-18 16:58] VITALS: BP 130/63; PULSE 87
== END 2023-03-18 16:50 | disposition home or self-care (01) ==
LOC: JD.ED 13:46
DX: M25.511 Pain in right shoulder (principal); R07.89 Other chest pain; J44.9 Chronic obstructive pulmonary disease, unspecified; E03.9 Hypothyroidism, unspecified; F17.210 Nicotine dependence, cigarettes, uncomplicated; Z88.0 Allergy status to penicillin; Z88.5 Allergy status to narcotic agent; Z79.899 Other long term (current) drug therapy
CPT/HCPCS: 71046; 72070; 96374; 99284; A9270; J1885; 99283

== ENCOUNTER 2024-06-15 11:28 | Emergency (ER) | payer OTHER, MEDICAID ==
[2024-06-15] MEDS ORDERED: Lactated Ringers 1,000 ML IV ONE (12:39)
[2024-06-15] MEDS ORDERED: Ketorolac 30 MG/ML SDV IVPUSH ONE (12:39)
[2024-06-15 12:46] LABS: BASOPHILS PERCENT AUTO 0.6 % (0.0-1.0); EOSINOPHILS PERCENT AUTO 0.8 % (0.0-6.0); HEMOGLOBIN 11.2 gm/dl (12.0-16.0); IMMATURE GRAN ABSOLUTE AUTO 0.01 K/mm3 (0.00-0.05); IMMATURE GRAN PERCENT AUTO 0.2 % (0.0-0.4); LYMPHOCYTES PERCENT AUTO 19.2 % (24.0-44.0); MEAN CORPUSCULAR HEMOGLOBIN 28.4 pg (28.0-32.0); MEAN CORPUSCULAR VOLUME 88.6 fl (83.0-99.0); MEAN PLATELET VOLUME 8.9 fl (9.4-12.3); MONOCYTES ABSOLUTE AUTO 0.4 K/mm3 (0.0-0.8); MONOCYTES PERCENT AUTO 8.4 % (0.0-8.0); NEUTROPHILS ABSOLUTE AUTO 3.6 K/mm3 (1.8-7.7); NEUTROPHILS PERCENT AUTO 70.8 % (41.0-71.0); PLATELET COUNT,PLT 351 K/mm3 (150-400); RED BLOOD CELL COUNT 3.95 M/mm3 (4.10-5.30); WHITE BLOOD CELL COUNT,WBC 5.11 K/mm3 (3.9-11.3)
[2024-06-15 13:06] LABS: A/G RATIO 0.9 (1-2); ALBUMIN 3.5 g/dl (3.4-5.0); ANION GAP 11.5 (5-15); BILIRUBIN TOTAL 0.4 mg/dL (0.2-1.0); BUN/CREATININE RATIO 8.6 (14-18); CALCIUM 8.9 mg/dL (8.5-10.1); CREATININE 0.7 mg/dL (0.55-1.02); EST CRCL DRUG DOSING (CG) 72.74 mL/min; POTASSIUM,K 3.5 mEq/L (3.5-5.1); PROTEIN TOTAL,TP 7.3 g/dl (6.4-8.2)
[2024-06-15] MEDS: Ketorolac 60 MG/2 ML SDV IM ONE (13:28)
[2024-06-15] MEDS: Acetaminophen 325 MG Tab PO ONE (13:59)
[2024-06-15] MEDS: Ibuprofen 600 MG Tab PO ONE (14:00)
[2024-06-15 16:44] VITALS: BP 122/75; PULSE 78
== END 2024-06-15 12:40 | disposition home or self-care (01) ==
LOC: JD.ED 11:28
DX: S22.31XA Fracture of one rib, right side, initial encounter for closed fracture (principal); S09.90XA Unspecified injury of head, initial encounter; R07.81 Pleurodynia; J44.9 Chronic obstructive pulmonary disease, unspecified; E03.9 Hypothyroidism, unspecified; Z88.0 Allergy status to penicillin; Z88.8 Allergy status to other drugs, medicaments and biological substances; Z79.890 Hormone replacement therapy; Z79.899 Other long term (current) drug therapy; Z90.49 Acquired absence of other specified parts of digestive tract; Z90.710 Acquired absence of both cervix and uterus; V49.40XA Driver injured in collision with unspecified motor vehicles in traffic accident, initial encounter
CPT/HCPCS: 36415; 70450; 71111; 71250; 80053; 85025; 99284; A9270

== ENCOUNTER 2024-11-28 22:05 | Emergency (ER) | payer MEDICAID ==
[2024-11-28] MEDS ORDERED: Sodium Chloride 0.9% 10 ML Syringe FLUSH PRN (22:59)
[2024-11-28 23:16] LABS: BASOPHILS ABSOLUTE AUTO 0.1 K/mm3 (0.0-0.2); BASOPHILS PERCENT AUTO 0.8 % (0.0-1.0); EOSINOPHILS ABSOLUTE AUTO 0.2 K/mm3 (0.0-0.4); EOSINOPHILS PERCENT AUTO 2.3 % (0.0-6.0); IMMATURE GRAN ABSOLUTE AUTO 0.02 K/mm3 (0.00-0.05); IMMATURE GRAN PERCENT AUTO 0.3 % (0.0-0.4); LYMPHOCYTES ABSOLUTE AUTO 1.2 K/mm3 (1.0-4.8); LYMPHOCYTES PERCENT AUTO 17.5 % (24.0-44.0); MEAN PLATELET VOLUME 9.2 fl (9.4-12.3); MONOCYTES ABSOLUTE AUTO 0.7 K/mm3 (0.0-0.8); MONOCYTES PERCENT AUTO 10.6 % (0.0-8.0); NEUTROPHILS ABSOLUTE AUTO 4.5 K/mm3 (1.8-7.7); NEUTROPHILS PERCENT AUTO 68.5 % (41.0-71.0); NRBC ABSOLUTE 0.00 (0.00-0.02); NRBC PERCENT 0.0 % (0.0-0.2); PLATELET COUNT,PLT 317 K/mm3 (150-400); RED BLOOD CELL COUNT 3.66 M/mm3 (4.10-5.30); WHITE BLOOD CELL COUNT,WBC 6.59 K/mm3 (3.9-11.3)
[2024-11-28] MEDS: Ketorolac 15 MG/ML SDV IVPUSH ONE (23:27)
[2024-11-28 23:45] LABS: A/G RATIO 0.9 (1-2); ALANINE AMINOTRANSFERASE,ALT 30.0 U/L (14-59); ASPARTATE AMNIOTRANSFERASE,AST 25.0 U/L (15-37); BILIRUBIN TOTAL 0.2 mg/dL (0.2-1.0); BLOOD UREA NITROGEN,BUN 8.0 mg/dL (7-18); CARBON DIOXIDE,CO2 25.0 mEq/L (21-32); CHLORIDE,CL 105.0 mEq/L (98-107); CREATININE 0.6 mg/dL (0.55-1.02); EST CRCL DRUG DOSING (CG) 80.5 mL/min; ESTIMATED GFR 104.0 mL/min (>60); GLUCOSE RANDOM 101.0 mg/dL (70-99); POTASSIUM,K 3.3 mEq/L (3.5-5.1); PROTEIN TOTAL,TP 6.7 g/dl (6.4-8.2); SODIUM,NA 139.0 mEq/L (136-145)
[2024-11-29 02:20] VITALS: BP 108/67; PULSE 87
== END 2024-11-29 02:24 | disposition home or self-care (01) ==
LOC: JD.ED 22:05
DX: M54.50 Low back pain, unspecified (principal); E03.9 Hypothyroidism, unspecified; Z88.0 Allergy status to penicillin; Z88.8 Allergy status to other drugs, medicaments and biological substances; Z79.890 Hormone replacement therapy; Z79.899 Other long term (current) drug therapy; Z90.49 Acquired absence of other specified parts of digestive tract; Z90.710 Acquired absence of both cervix and uterus
CPT/HCPCS: 36415; 72131; 80053; 83690; 84703; 85025; 96374; 96375; 99284; J1171; J1885